=== PATIENT | male | born 2000 | race Caucasian/White ===

== ENCOUNTER 2018-10-22 14:50 | Day surgery (SDC) | payer OTHER ==
[2018-10-19 11:05] LABS: APPEARANCE,URINE CLEAR; BILIRUBIN,URINE NEGATIVE (NEGATIVE); COLOR,URINE YELLOW; GLUCOSE, URINE NEGATIVE (NEGATIVE); KETONES,URINE NEGATIVE (NEGATIVE); LEUKOCYTE ESTERASE,URINE NEGATIVE (NEGATIVE); NITRITE,URINE NEGATIVE (NEGATIVE); PROTEIN,URINE NEGATIVE (NEGATIVE); URINE SPECIFIC GRAVITY 1.018; UROBILINOGEN,URINE NEGATIVE mg/dL (<2.0)
[~2018-10-22 14:50] MED LIST: BUPIVACAINE HCL 0.5 % INJ/PF 30 ML SDV ONE; CEFAZOLIN SODIUM 2 GM in DEXTROSE 5%-WATER 100 ML IV PRN; DEXAMETHASONE SOD PHOSPHATE INJ 4 MG/1 ML VIAL ONE; LACTATED RINGERS 1000 ML IV PRN; LIDOCAINE 0.5% INJ-PF (5 MG/ML) 50 ML SDV SUBCUT PRN; LIDOCAINE 2% INJ-PF (20 MG/ML) 2 ML AMPUL ONE; ONDANSETRON HCL INJ/PF 4 MG/2 ML SDV ONE
[2018-10-22] MEDS ORDERED: MIDAZOLAM 2 MG/2 ML INJ ONE (15:24)
[2018-10-22] MEDS ORDERED: FENTANYL CITRATE INJ/PF 100 MCG/2 ML AMPUL ONE (15:24)
[2018-10-22] MEDS ORDERED: PROPOFOL INJ 200 MG/20 ML VIAL IV ONE (15:25)
[2018-10-22] MEDS ORDERED: HYDROMORPHONE HCL INJ/PF 2 MG/ML AMPULE ONE (15:25)
[2018-10-22] MEDS ORDERED: ACETAMINOPHEN 1,000 MG/100 ML RTUPB IV ONE (15:26)
[2018-10-22] MEDS ORDERED: CEFAZOLIN INJ 1 GM VIAL ONE (15:32)
[2018-10-22] MEDS ORDERED: FENTANYL CITRATE INJ/PF 100 MCG/2 ML AMPUL IV PRN ×3 (17:50)
[2018-10-22] MEDS ORDERED: MEPERIDINE HCL/PF INJ 25 MG/1 ML DISP.SYRIN IV PRN (17:50)
[2018-10-22] MEDS ORDERED: PROMETHAZINE HCL INJ 25 MG/1 ML VIAL IV PRN (17:50)
[2018-10-22] MEDS ORDERED: DIPHENHYDRAMINE HCL 50 MG/ML VIAL IV PRN (17:50)
--- NOTE | 2018-10-22 18:09 | Operative Report ---
Operative Report DATE OF SURGERY: 10/22/18 PREOPERATIVE DIAGNOSIS: Right wrist laceration POSTOPERATIVE DIAGNOSIS: Right superficial nerve laceration OPERATION: Repair of right superficial radial nerve SURGEON: SHELIA ANNE ANESTHESIA: GA COMPLICATIONS: None ESTIMATED BLOOD LOSS: Minimal PROCEDURE: Indication for above procedure: 18-year-old male who sustained a laceration to his right wrist. On examination of findings suggesting superficial radial nerve laceration with possible tendon involvement. We discussed treatment options including operative versus nonoperative intervention decision was made to then proceed with operative treatment. Risks and benefits were explained patient verbalized understanding consented for the surgical procedure. Procedure In Detail: Patient was seen and evaluated in the preoperative holding area. The RIGHT upper extremity was initialized and marked. Patient received 2g of Ancef IV for bacterial prophylaxis. Patient was taken back to the operative room where transferred to the operative table and placed under general anesthesia. Once they were adequately anesthetized a nonsterile tourniquet was placed on the upper extremity. A surgical team debriefing was performed ensuring all instrumentation was available, the surgical procedure was discussed with possible concerns reviewed. The upper extremity was prepped with chlorhexidine and alcohol and draped in a sterile fashion. A timeout was done identifying correct patient, procedure and extremity everyone in attendance agree with this and verbalized no concerns. The extremity was exsanguinated the tourniquet was inflated to 250 mmHg. Laceration was extended proximally and distally. Blunt dissection was performed. Any peripheral veins were coagulated with bipolar cautery. There was no evidence of arterial or tendon involvement. However there was laceration of the superficial radial nerve intermediate branch. Proximal and distal aspects were treated to normal-appearing fascicles. Under microscope magnification the nerve was repaired with 9-0 nylon suture a tensionless repair was performed. A 3 mm x 15 mm nerve connector was utilized to act as a nerve protector and secured with 8-0 nylon suture. At completion there was no evidence of tension on the repair with thumb range of motion. Surgical incision was closed with interrupted 4-0 nylon suture. 15 cc of 0.5% bupivacaine without epinephrine was injected for postoperative pain control. Wound was dressed Xeroform 4 x 4's and patient was placed in a thumb spica splint. Sponge counts, instrument counts, needle counts were correct. Patient was then awoken from anesthesia. Transferred from the operating room table to the operating room stretcher. There was no intraoperative complications patient tolerated procedure well stable to PACU. Postop plan: Patient will be fitted for a thumb spica Exos brace at follow-up visit. We will not begin thumb adduction until 4 weeks postoperatively.
[2018-10-22] MEDS ORDERED: HYDROCODONE/ACETAMINOPHEN 5-325 MG TABLET PO PRN (18:10)
[2018-10-22] MEDS ORDERED: ONDANSETRON HCL INJ/PF 4 MG/2 ML SDV IV PRN (18:10)
[2018-10-22] MEDS ORDERED: MORPHINE SULFATE 10 MG/ML INJ IV PRN (18:10)
--- NOTE | 2018-10-22 18:10 | Discharge Summary ---
Discharge Summary (SDC) - Discharge Final Diagnosis: Right wrist superficial radial nerve laceration Date of Surgery: 10/22/18 Discharge Date: 10/22/18 Condition: Good Treatment or Instructions: Schedule Follow Up w/ Dr. Davian Ni @ [facility] to be seen in 10-14 days or as scheduled [place]: [place]: [place]: Ice and elevate Keep splint clean/dry/intact. If your fingers become numb please unwrap the [place] wrap but leave the splint in place, if the sensation does not return within 30 minutes please return to the emergency department. May begin finger range of motion attempting to make full fist. Please use ibuprofen (Motrin or Advil) 600-800 mg every 8 hours as needed for pain or fever DO NOT TAKE w/ TORADOL may use once TORADOL complete. You may also use acetaminophen (Tylenol) 1000 mg every 4-6 hours as needed for pain or fever. Please be aware that many medications contain acetaminophen, do not exceed a total of 1000 mg of acetaminophen every 6 hours. If ibuprofen and acetaminophen are not sufficient for your pain you may take the Percocet/[place]. Please be aware that the Percocet/[place] does contain Tylenol. Stool softener of choice when on pain medication. USE OF [id number] IBUPROFEN: Ibuprofen (Advil, Nuprin, Medipren, Motrin IB) is a medication for fever and pain control. In addition, it has anti- inflammatory effects which may be beneficial, especially in the treatment of injuries. It's best to take ibuprofen with food. Persons with ulcer disease or allergy to aspirin should notify their physician of this before taking ibuprofen. Ibuprofen can be given every four to six hours, for a total of four doses daily. Age Pain or fever dose Antiinflammatory dose 6-8 yr 200 mg (1 tab) 200 mg (1 tab) 9-11 yr 200 mg (1 tab) 200-400 mg (1-2 tab) 11-14 yr 200-400 mg (1-2 tab) 400 mg (2 tab) 15-adult 400 mg (2 tab) 600 mg (3 tab) ORAL NARCOTIC MEDICATION: You have been given a prescription for pain control. This medication is a narcotic. It's best taken with food, as nausea can result if taken on an empty stomach. Don't operate machinery or drive within six hours of taking this medication. Do not combine this medicine with alcohol, or with any medication which can cause sedation (such as cold tablets or sleeping pills) unless you get permission from the physician. Narcotics tend to cause constipation. If possible, drink plenty of fluids and eat a diet high in fiber and fruits. Please be aware that prescription narcotics also have the potential for abuse. People become addicted to these medications because of the general sense of wellbeing that they induce. This feeling along with a significant reduction in tension, anxiety, and aggression provides a stimulating seductive quality to these drugs. Once your pain is under control, we encourage you to discard your unused narcotics. Prescriptions: Hydrocodone/Acetaminophen [[place] 5-325 mg Tablet] 1 tab PO Q6 PRN #25 tablet PRN Reason: Discharge Diet: As Tolerated Respiratory Treatments at Home: Deep Breathing/Coughing Discharge Activity: No Lifting Over 10 Pounds, No Lifting/Push/Pulling Report the Following to Your Physician Immediately: Fever over 101 Degrees, Unusual Bleeding, Redness, Swelling, Warmth
[2018-10-22 19:42] VITALS: BP 129/75
== END 2018-10-22 19:45 | disposition home or self-care (01) ==
LOC: OROUT 14:50
PROVIDERS: ATTEND Orthopaedic Surgery
DX: S64.21XA Injury of radial nerve at wrist and hand level of right arm, initial encounter (principal); S61.511A Laceration without foreign body of right wrist, initial encounter; W26.8XXA Contact with other sharp object(s), not elsewhere classified, initial encounter; G56.31 Lesion of radial nerve, right upper limb
CPT/HCPCS: 81001; 64857; C1763; J2250; J3490 ×2; J0690; J1100; J1170; J2405; J2704; J0131; 1810; J3010